=== PATIENT | male | born 1995 | race Caucasian/White ===

== ENCOUNTER 2023-12-24 | Emergency (ER) | payer SELFPAY ==
[2023-12-24] MEDS: Diphtheria,Pertussis(Acell),Tetanus Vaccine 0.5 ML Syringe IM ONE (00:44)
[2023-12-24] MEDS ORDERED: Amoxicillin/Clavulanate K 875-125 MG Tab PO ONE (00:48)
== END 2023-12-24 01:08 | disposition home or self-care (01) ==
LOC: FB.ED
DX: S61.411A Laceration without foreign body of right hand, initial encounter (principal); Z23 Encounter for immunization; W25.XXXA Contact with sharp glass, initial encounter
CPT/HCPCS: 12001; 90471; 90715; 99282-25; 99283